=== PATIENT | male | born 1955 | race Caucasian/White ===

== ENCOUNTER → 2020-01-22 | Outpatient (CLI) | payer MEDICARE, OTHER ==
[2020-01-22 13:35] LABS: ANION GAP 7 (5-19); BLOOD UREA NITROGEN 17 mg/dL (7-20); CALCIUM 8.9 mg/dL (8.4-10.2); CARBON DIOXIDE 26 mmol/L (22-30); CHLORIDE 104 mmol/L (98-107); GLUCOSE 97 mg/dL (75-110); POTASSIUM 5.3 mmol/L (3.6-5.0)
== END ==
LOC: OD 12:33
PROVIDERS: ATTEND Family Medicine
DX: E87.5 Hyperkalemia (principal)
CPT/HCPCS: 36415; 80048

== ENCOUNTER → 2020-09-10 | Outpatient (CLI) | payer MEDICARE, OTHER ==
--- NOTE | 2020-09-10 18:18 | XCELERA REPORT ---
[address] [address] Transthoracic Echocardiogram Report Name: NING STRAUSS JR Age: 65 yrs Gender: Male : 1955 Patient Status: Outpatient Patient Location: [facility] Study Date: 09/10/2020 09:13 AM History: SOB Tachycardia Height: 69 in Weight: 250 lb BSA: 2.3 m2 Procedure: A complete two-dimensional transthoracic echocardiogram was performed (2D, M-mode, spectral and color flow Doppler). The study was technically difficult with many images being suboptimal in quality. Reason For Study: SOB, TACHYCARDIA Previous Evaluation: No previous studies were available. History: SOB Tachycardia. Ordering Physician: HARVEY GABRIEL Performed By: Kenneth Khan Interpretation Summary Left ventricular systolic function is normal. The Ejection Fraction estimate is 60-65% The right ventricle is normal in size and function. There is a trace amount of mitral regurgitation There is mild aortic stenosis There is a mild amount of aortic regurgitation There is a trace amount of tricuspid regurgitation There is mild pulmonary hypertension by echo MMode/2D Measurements & Calculations RVDd: 3.2 cm LVIDd: 4.6 cm FS: 33.4 % Ao root diam: 3.7 cm IVSd: 1.3 cm LVIDs: 3.0 cm EDV(Teich): 96.3 ml Ao root area: 10.5 cm2 LVPWd: 1.3 cm ESV(Teich): 36.4 ml LA dimension: 3.9 cm EF(Teich): 62.2 % Doppler Measurements & Calculations MV E max theo: MV P1/2t max theo: Ao V2 max: LV V1 max P.5 cm/sec 124.9 cm/sec 277.7 cm/sec 5.0 mmHg MV A max theo: MV P1/2t: 69.4 msec Ao max PG: LV V1 mean P.7 cm/sec MVA(P1/2t): 3.2 cm2 30.9 mmHg 2.1 mmHg MV E/A: 0.87 MV dec slope: Ao V2 mean: LV V1 max: 186.0 cm/sec 111.6 cm/sec 527.0 cm/sec2 Ao mean PG: LV V1 mean: MV dec time: 0.19 sec 16.0 mmHg 67.4 cm/sec Ao V2 VTI: 65.9 cm LV V1 VTI: 25.5 cm PA V2 max: TR max theo: MV P1/2t-pr_phl: 90.3 cm/sec 286.4 cm/sec 69.4 msec PA max P.3 mmHgTR max P.8 mmHg Left Ventricle The left ventricle is normal in size. There is moderate to severe concentric left ventricular hypertrophy. Left ventricular systolic function is normal. The Ejection Fraction estimate is 60-65%. Doppler measurements suggest impaired left ventricular relaxation, which is associated with grade I/IV or mild diastolic dysfunction. Right Ventricle The right ventricle is normal in size and function. Atria The right atrium is normal. The left atrium is mildly dilated. Mitral Valve There is mild mitral leaflet calcification. There is no mitral valve stenosis. There is a trace amount of mitral regurgitation. Aortic Valve The aortic valve is mildly calcified. The aortic valve is sclerotic and shows some degree of functional abnormality. There is mild aortic stenosis. Mean PG=16 mm Hg AoV=2.85 m/s. There is a mild amount of aortic regurgitation. Tricuspid Valve The tricuspid valve is normal in structure and function. There is no tricuspid stenosis. There is a trace amount of tricuspid regurgitation. Best estimated right ventricular systolic pressure is elevated at 30-40mmHg. There is mild pulmonary hypertension by echo. Pulmonic Valve The pulmonic valve is normal in structure and function. There is no pulmonic valvular stenosis. There is a trace amount of pulmonic regurgitation. Great Vessels The aortic root is normal size. There is aortic root sclerosis/calcification. The inferior vena cava appeared normal and decreased > 50% with respiration (RAP 5-10 mmHg). Effusions There is no pericardial effusion. : HARVEY GABRIEL Anil
== END ==
LOC: RAD 08:39
PROVIDERS: ATTEND Internal Medicine
DX: R06.02 Shortness of breath (principal); R00.0 Tachycardia, unspecified
CPT/HCPCS: 93306